=== PATIENT | male | born 1990 | race Caucasian/White ===

== ENCOUNTER → 2020-07-28 18:43 | Outpatient (CLI) | payer OTHER, SELFPAY ==
--- NOTE | 2020-07-28 18:46 | DI.MRI.S_ITS ---
PROCEDURE: MR HAND RT WO CON INDICATIONS: PAIN IN RIGHT HAND TECHNIQUE: Noncontrast oblique coronal T1 spin echo and T2 fast spin echo with fat saturation, axial and sagittal T2 fast spin echo with fat saturation, through the thumb. COMPARISON: None. FINDINGS: Image quality: Suboptimal due to difficulty with patient positioning, secondary to cast. There is marked soft tissue edema about the 1st MCP joint. Small 1st MCP joint effusion is present. The thumb flexor and extensor tendons appear grossly intact. The radial collateral ligament of the 1st MCP joint appears grossly intact. There is high-grade partial versus complete rupture of the ulnar collateral ligament at the 1st MCP joint. The adductor aponeurosis appears overlying/superficial to the UCL and no definite Stener appearance is identified, however suboptimal evaluation due to patient positioning with cast, and severe inflammatory changes. If there is persistent clinical suspicion, consider follow-up examination after decrease in acute inflammation. Thickening of the extensor pollicis longus tendon raising the possibility of strain. IMPRESSION: High-grade partial versus complete rupture of the ulnar collateral ligament at the 1st MCP joint. Strain/partial tear of the extensor pollicis longus tendon. Dictated by: Uriah Luis M.D. on 07/29/2020 at 13:25 Approved by: Uriah Luis M.D. on 07/29/2020 at 13:44
== END ==
DX: M79.641 Pain in right hand (principal); S63.8X1A Sprain of other part of right wrist and hand, initial encounter; S66.318A Strain of extensor muscle, fascia and tendon of other finger at wrist and hand level, initial encounter
CPT/HCPCS: 73218